=== PATIENT | female | born 1990 | race Caucasian/White ===

== ENCOUNTER 2016-10-24 15:37 | Emergency (ER) ==
[2016-10-24 15:49] VITALS: BP 123/82; TEMP 99.3; BMI 25.7
[2016-10-24 16:12] LABS: URINE PREGNANCY INTERNAL QC INTERNAL QC VALID
--- NOTE | 2016-10-24 16:38 | ED.PDOC ---
General ED Provider: Dr. QI ROJAS Chief Complaint: Fall Stated Complaint: fall Time Seen by Physician: 15:40 (fall was 7 days ago has neck and low back pain) Mode of Arrival: Walk-In Information Source: Patient Exam Limitations: No limitations Nursing and Triage Documentation Reviewed and Agree: Yes (windows infrastructure engineer present at all times ) Trauma/Injury Complaint Exam - Trauma Complaint/Exam Location of Pain or Injury: Reports: Neck, Back Mechanism of Injury: Reports: Fall Symptoms Are: Still present Timing of Treatment: Immediate Initial Severity: Moderate Current Severity: Moderate Character: Reports: Aching Aggravating: Reports: None Alleviating: Reports: None Associated Signs and Symptoms: Reports: Bruising Related History: Reports: Similar episode Related Surgical History: Reports: None Nexus Low Risk Criteria: No evidence of intoxicat., No Altered LOC, No focal neuro deficit, No distracting injuries Review of Systems - Review Of Systems Constitutional: Reports: No symptoms Eyes: Reports: No symptoms Ears, Nose, Mouth, Throat: Reports: No symptoms Respiratory: Reports: No symptoms Cardiac: Reports: No symptoms GI: Reports: No symptoms : Reports: No symptoms Musculoskeletal: Reports: Back pain, Neck pain Skin: Reports: No symptoms Neurological: Reports: No symptoms Endocrine: Reports: No symptoms Hematologic/Lymphatic: Reports: No symptoms All Other Systems: Reviewed and Negative Past Medical History - Past Medical History Previously Healthy: Yes Endocrine: Reports: None Cardiovascular: Reports: None Respiratory: Reports: None Hematological: Reports: None Gastrointestinal: Reports: None Genitourinary: Reports: None Neuro/Psych: Reports: None Musculoskeletal: Reports: None Cancer: Reports: None Last Menstrual Period: 10/04/16 - Surgical History General Surgical History: Reports: Unknown - Family History Family History: Reports: Unknown - Social History Smoking Status: Current some day smoker Hx Substance Use: No Alcohol Screening: None - Immunizations Tetanus Shot up to Date: Yes Physical Exam - Physical Exam Appearance: Well-appearing, No pain distress, Well-nourished Eyes: NICKY, EOMI, Conjunctiva clear ENT: Ears normal, Nose normal, Oropharynx normal Respiratory: Airway patent, Breath sounds clear, Breath sounds equal, Respirations nonlabored Cardiovascular: RRR, Pulses normal, No rub, No murmur GI/: Soft, Nontender, No masses, Bowel sounds normal, No Organomegaly Musculoskeletal: Normal strength, ROM intact, No edema, No calf tenderness Skin: Warm, Dry, Normal color Neurological: Sensation intact, Motor intact, Reflexes intact, Cranial nerves intact, Alert, Oriented Psychiatric: Affect appropriate, Mood appropriate Interpretation - Radiology Interpretation Radiology Interpretation By: Radiologist Critical Care Note - Critical Care Note Total Time (mins): 0 Course - Course Orders, Labs, Meds: Lab Review 10/24/16 16:05 Urine Test Negative Orders Category Date Time Status URINE Stat LAB 10/24/16 16:[address] CERVICAL SPINE W/O CONTRAST Stat RADS 10/24/16 16:[address] LUMBAR SPINE W/O CONTRAST Stat RADS 10/24/16 16:01 Ordered Vital Signs: Temp Pulse Resp BP Pulse Ox 10/24/16 15:38 99.3 F 76 20 123/82 99 Departure - Departure Time of Disposition: 17:10 (josefina present at all times ) Disposition: HOME SELF-CARE Discharge Problem: Falls, Neck pain Low back pain Qualifiers: Chronicity: unspecified Instructions: Acute Neck Pain (ED), Neck Pain (ED), Cervical Sprain (ED), Low Back Strain (ED), Acute Low Back Pain (ED), Arthralgia (ED) Condition: Good Pt referred to PMD for follow-up: No Additional Instructions: Please call your Family Physician as soon as possible to schedule a follow-up appointment. Allergies/Adverse Reactions: Allergies latex Adverse Reaction (Verified 10/24/16 15:47) Latex, Natural Rubber Adverse Reaction (Verified 10/24/16 15:47) Home Medications: Ambulatory Orders 1 [No Reported Medications] 10/24/16
--- NOTE | 2016-10-24 16:42 | CT ---
EXAM: CT of the lumbar spine without contrast History: Lower back trauma. Technique: Multiplanar CT images through the lumbar spine were obtained without the administration of IV contrast Findings: No acute fracture or subluxation. The disc space heights are preserved. The bony spinal canal is n ot compromised and there is no significant bony neural foraminal narrowing. Impression: No acute osseous abnormality of the lumbar spine and no significant degenerative change s.
--- NOTE | 2016-10-24 16:46 | CT ---
EXAM: CT of the cervical spine without contrast History: Neck trauma. Technique: Multiplanar CT images through the cervical spine were obtained without the administratio n of IV contrast Findings: The visualized lung apices are free of consolidation. The visualized airway remains koroma nt. No acute fracture or subluxation of the cervical spine. No prevertebral soft tissue swelling. Pred ental space is not widened. The disc space heights are preserved. Bony spinal canal is not comprom ised. 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 Impression: No acute osseous abnormality of the cervical spine.
== END 2016-10-24 16:40 | disposition home or self-care (01) ==
LOC: ED 15:37
DX: M54.2 Cervicalgia (principal); M54.5 Low back pain; W19.XXXA Unspecified fall, initial encounter; F17.210 Nicotine dependence, cigarettes, uncomplicated
CPT/HCPCS: 81025; 99283